=== PATIENT | female | born 1990 | race African-American/Black ===

== ENCOUNTER 2018-06-08 07:55 | Emergency (ER) | payer OTHER ==
[~2018-06-08] VITALS: Ht 152.4 cm; Wt 61.2 kg
--- NOTE | 2018-06-08 07:56 | NUR ---
BIB SELF 27 YEAR OLD FEMALE c/o nausea vomiting and diarrhea with abdominal contraction, 35weeks, ALERT AND ORIENTED X4, BREATHING EVEN AND UNLABORED WITH NO DISTRESS NOTED. SKIN INTACT AND WARM TO TOUCH. AWAITING TO BE SEEN BY
[2018-06-08] MEDS ORDERED: ONDANSETRON HCL/PF 4 MG/2 ML VIAL ONE (08:14)
--- NOTE | 2018-06-08 08:28 | NUR ---
Emergency Prospective Review Program (EPRP)
[2018-06-08 08:30] LABS: BASOPHILS % (AUTO) 0.3 % (0.0-2.0); HEMATOCRIT 39 % (33-45); MEAN CORPUSCULAR HGB CONC 34 g/dl (31.0-36.0); MEAN CORPUSCULAR VOLUME 88 fL (82-100); MONOCYTES # (AUTO) 0.6 /CMM (0.1-1.30); MONOCYTES % (AUTO) 6.4 % (2.0-12.0); NEUTROPHILS # (AUTO) 7.4 /CMM (1.8-8.9); NEUTROPHILS % (AUTO) 80.3 % (43.0-81.0); PLATELET COUNT (AUTO) 121 /CMM (150-450); RED BLOOD CELL COUNT(AUTO) 4.38 MIL/uL (4.0-5.2); WHITE BLOOD COUNT (AUTO) 9.2 K/uL (4.3-11.0)
[2018-06-08] MEDS ORDERED: ONDANSETRON HCL/PF 4 MG/2 ML VIAL IVP ONE (08:30)
[2018-06-08] MEDS ORDERED: IV NS 0.9% 1,000 ML BAG IV ONE (08:30)
--- NOTE | 2018-06-08 08:38 | NUR ---
U/S TECH AT BEDSIDE
[2018-06-08 08:39] LABS: CALCIUM, SERUM 9.1 mg/dL (8.5-10.1); CREATININE 0.6 mg/dL (0.6-1.3)
[2018-06-08 08:45] LABS: ALBUMIN 2.8 g/dL (3.4-5.0); BILIRUBIN,DIRECT 0.1 mg/dL (0.0-0.2); BILIRUBIN,TOTAL 0.5 mg/dL (0.2-1.0); TOTAL PROTEIN, SERUM 7.5 g/dL (6.4-8.2)
--- NOTE | 2018-06-08 09:07 | NUR ---
[facility] CALLED BACK. ACCEPTED BY DR BECKER TO [facility]. TO GO TO L&D TRIAGE AREA. GIVE REPORT PRADEEP AT [phone]. Addendum: 06/08/18 at 0918 by PIERCE Amendment undone in EDM - 06/08/18 at 0918 by PIERCE [employer] DEVELOPER TIME BY [facility] AT 0930. Addendum: 06/08/18 at 0919 by BRITTNEY F[employer] DEVELOPER BY [facility] AT 0930. Addendum: 06/08/18 at 0942 by COBLY [phone]
[2018-06-08 09:28] LABS: APPEARANCE,URINE SL CLOUDY (CLEAR); BILIRUBIN,URINE NEGATIVE (NEGATIVE); BLOOD, URINE NEGATIVE Ery/uL (NEGATIVE); COLOR,URINE YELLOW (YELLOW); KETONES,URINE NEGATIVE (NEGATIVE); LEUKOCYTE ESTERASE ,URINE NEGATIVE (NEGATIVE); NITRITE, URINE NEGATIVE (NEGATIVE); PROTEIN,URINE NEGATIVE (NEGATIVE); UGLUCOSE NEGATIVE (NEGATIVE); UROBILINOGEN,URINE 0.2 EU/dL (0.2)
--- NOTE | 2018-06-08 09:44 | NUR ---
PATIENT TRANSFERRED TO [facility], REPORT GIVEN TO [facility]
[2018-06-08 09:45] VITALS: BP 133/74
--- NOTE | 2018-06-08 09:45 | NUR ---
CALLED [facility] GAVE REPORT TO JOSEPH FERNÁNDEZ.
== END 2018-06-08 09:46 | disposition short-term general hospital (02) ==
LOC: ER 07:57
DX: O21.8 Other vomiting complicating pregnancy (principal); O26.893 Other specified pregnancy related conditions, third trimester; O99.113 Other diseases of the blood and blood-forming organs and certain disorders involving the immune mechanism complicating pregnancy, third trimester; D69.6 Thrombocytopenia, unspecified; E88.09 Other disorders of plasma-protein metabolism, not elsewhere classified; J45.909 Unspecified asthma, uncomplicated; Z98.890 Other specified postprocedural states; Z88.1 Allergy status to other antibiotic agents; Z3A.35 35 weeks gestation of pregnancy
CPT/HCPCS: 36415; 76805; 80048; 80076; 81001; 82962; 85025; 96361; 96374; 99285; A4606; J2405; J7030; Z7610; 81000-TC